=== PATIENT | male | born 1945 | race Caucasian/White ===

== ENCOUNTER → 2016-10-30 | Day surgery (SDC) | payer OTHER ==
[~2016-10-30] VITALS: Ht 175.3 cm; Wt 90.2 kg
[~2016-10-30] MED LIST: *HYDROmorphone PF 1 MG VIAL PERIprocedural Use ONLY ONE; *morphine SULFATE 8 MG/ML PERIprocedure ONLY ONE; ACETAMINOPHEN 1000 MG/100 ML VIAL IV ONE; ACETAMINOPHEN/HYDROcodone 325 MG/7.5 MG TAB PO PRN; ALEN1TAB48 PO; ASPI-110 PO; ATOR40TA16 PO; BUPIVACAINE/EPINEPHRINE 0.25% PF 30 ML VIAL ONE; CHLORHEXIDINE GLUCONATE 4% SOLN 120 ML BTL TOP SCH; CYAN25003 SL; DO NOT ADM ANY ANTICOAGULANT DRUGS XX PRN; ENAL20TA PO; FAMOTIDINE 20 MG/2 ML VIAL ONE; FLUT1INH7 INH; GENTAMICIN SULFATE 80 MG/2 ML VIAL ONE; GLIP5TAB8 PO; HYDROmorphone HCL PF 2 MG/ML VIAL ONE; INSULIN HUMAN REGULAR 1,000 UNITS/10 ML VIAL SQ PRN; LACTATED RINGER'S 1000 ML INJ 1,000 ML IV ONE; LACTATED RINGER'S 1000 ML IV SCH; LOSA100T PO; METF1000 PO; METOPROLOL TARTRATE 25 MG TAB PO PRN; MORP15TA73 PO; NEOSTIGMINE 3 MG/3 ML SYR IV ONE; OMEG100037 PO; OMEP20TA PO; ONDANSETRON HCL 4 MG/2 ML VIAL IV PUSH ONE; PHENYLEPH/NS 1000 MCG/10 ML SYR IV ONE; PROPOFOL 200 MG/20 ML AMP IV ONE; SODIUM CHLORID 0.9% 500 ML IV SCH; VENTAER INH; ceFAZolin 1,000 MG/NS 100 ML IV SCH; fentaNYL CITRATE 250 MCG/5 ML AMP IV ONE
[2016-10-30 10:30] VITALS: BP 163/94; PULSE 113; RESP 18; TEMP 97.8; O2SAT 94
--- NOTE | 2016-10-30 15:32 | RADRPT ---
EXAM DATE/TIME: 10/30/2016 14:12 [place] COMPARISON: No previous studies available for comparison. INDICATIONS : Lumbar spine L4-5 laminectomy. OR. MEDICAL HISTORY : None. SURGICAL HISTORY : None. ENCOUNTER: Initial ACUITY: 1 day PAIN SCORE: Non-responsive. LOCATION: Lumbar L4-5 FINDINGS: Single lateral matrix view reveals posterior markers projecting toward the mid L4 and L5 vertebral lissett dies with degenerative disease narrowing and spurring at L5-S1 CONCLUSION: Localization as described Tom Astorga MD on October 30, 2016 at 15:30 Board Certified Radiologist. This report was verified electronically.
--- NOTE | 2016-10-30 15:49 | MP ---
cc: MAKENZIE KEVIN M.D., VINOD K. MD NASHED, MAGDY S. M.D. DATE OF OPERATION October 30, 2016 PREOPERATIVE DIAGNOSIS 1. L4-5 moderately severe spinal stenosis. 2. L3 to S1 severe degenerative disc disease, osteoarthritis. 3. Status post spinal cord stimulator. 4. Chronic pain syndrome. 5. Morbid obesity. POSTOPERATIVE DIAGNOSIS 1. L4-5 moderately severe spinal stenosis. 2. L3 to S1 severe degenerative disc disease, osteoarthritis. 3. Status post spinal cord stimulator. 4. Chronic pain syndrome. 5. Morbid obesity. PROCEDURE L4-5 bilateral decompressive hemilaminectomy with decompression of nerve root, foraminotomy, partial facetectomy. SURGEON Marquita Kevin MD ADMISSIONS GATE ATTENDANT ELOISA Diaz SPECIMEN None. ESTIMATED BLOOD LOSS 20 ccs. COMPLICATIONS None. ANESTHESIA General. DRAIN None. CONDITION Stable. PLAN OF ACTIVITY Per orders. PROCEDURE My law office assistant ELOISA Diaz was present for the entire surgical case. She was medically necessary for the entire case because of the complexity of the case and to facilitate the performance of the procedure. The RELATIONS LIAISON at the back table was not a skill set for this case to manipulate the instruments e.g., the multiple different types of soft tissue retractors and nerve root retractors. The patient was brought in the operating room and had satisfactory general endotracheal anesthesia by Dr. Dangelo Quiroga, the Department of Anesthesia. The patient was carefully transferred onto the [facility] spinal frame. Because of the patient's obesity, great care was made to protect all pressure points. Localizing x-ray was then used to identify the L4-5 interspace. The lumbosacral spine was prepped and draped in usual sterile manner. Small incision was made over L4-5. Dissection was carried through many inches of adipose tissue down to the underlying fascia. Paraspinal musculature was gently removed from the L4-5 interspaces bilaterally. Again throughout the entire surgical procedure continued imaging was used to confirm the L4-5 interspace. A bilateral decompressive hemilaminectomy was performed at L4-5. The patient was found to have moderately severe spinal stenosis and foraminal stenosis bilaterally. The patient was found to have very satisfactory decompression of the spinal canal and thecal sac. Partial facetectomy was performed bilaterally with foraminotomies. There is no evidence of any CSF leaks, there was no bleeding. The patient was found to have very satisfactory decompression of the neurological elements. The wound was irrigated with copious amounts of sterile saline antibiotic solution. The wound itself was dry. The wound was closed in routine manner. The fascia was closed with #2 Tycron suture, subcuticular layer with 0 Vicryl and 2-0 Vicryl. Skin was approximated with running subcuticular 3-0 Vicryl and Dermabond on the skin. Sterile dressing was applied. The patient tolerated the procedure well and arrived in the recovery room in stable and satisfactory condition. MD FARRAH Roy/AMANDA /2:43 PM /3:26 PM
[2016-10-30 17:00] VITALS: BP 110/72; PULSE 100; RESP 18; TEMP 98; O2SAT 97
== END | disposition home or self-care (01) ==
LOC: HSDC 10:18
PROVIDERS: ATTEND Orthopaedic Surgery Orthopaedic Surgery of the Spine
DX: M51.36 Other intervertebral disc degeneration, lumbar region (principal); M48.06 Spinal stenosis, lumbar region; M54.5 Low back pain; G89.4 Chronic pain syndrome; I10 Essential (primary) hypertension; J44.9 Chronic obstructive pulmonary disease, unspecified; E11.9 Type 2 diabetes mellitus without complications; E66.01 Morbid (severe) obesity due to excess calories; Z68.29 Body mass index [BMI] 29.0-29.9, adult
CPT/HCPCS: 00630; 63030; 72020; 76000; J0131; J0690; J1170; J1580; J2270; J2370; J2405; J2710; J3010; J7120